=== PATIENT | female | born 1990 | race Caucasian/White ===

== ENCOUNTER 2020-02-03 10:46 | Outpatient (REF) | payer OTHER, SELFPAY | END 2020-02-03 10:47 | disposition home or self-care (01) | LOC: HO.WFDLDS 10:46 | PROVIDERS: PCP Internal Medicine; Visit Provider Internal Medicine | DX: Z20.828 Contact with and (suspected) exposure to other viral communicable diseases (principal) | CPT/HCPCS: U0003 ==

== ENCOUNTER 2024-02-05 11:21 | Outpatient (REF) | payer OTHER, SELFPAY ==
[2024-02-05 14:25] LABS: Influenza A PCR NEGATIVE (Negative); Influenza B PCR NEGATIVE (Negative); Resp Syncy Virus RNA Qual PCR NEGATIVE (Negative); SARS COV2 PCR INHOUSE NEGATIVE (Negative)
== END 2024-02-05 11:22 | disposition home or self-care (01) ==
LOC: HO.LAB 11:21
PROVIDERS: PCP Nurse Practitioner Family; Visit Provider Registered Nurse
DX: J06.9 Acute upper respiratory infection, unspecified (principal)
CPT/HCPCS: 0241U; 87880; 99212

== ENCOUNTER 2024-02-05 11:21 | Outpatient (AMB) | payer OTHER, SELFPAY ==
[2024-02-05 11:22] VITALS: BP 118/70; PULSE 77; TEMP 36.7; O2SAT 98; BMI 26.6
--- NOTE | 2024-02-05 11:22 | AM.OFFWIN_ITS ---
Intake Vital Signs 02/05/24 11:22 Height 5 ft 4 in Weight 155 lb BMI 26.6 BP 118/70 Blood Pressure Location Rt brachial Position Sitting Pulse 77 Pulse Source Pulse Oximeter Temp 98.1 F Temp Source Oral Pulse Oximetry (%) 98 Intake Visit Reasons: EP Sore throat, lymph nodes in neck are painful Intake Note: pt is here for sore throat, lymph nodes in neck swollen causing pain Patient Tobacco Use Status: Never used Tobacco Allergies No Known Allergies Allergy (Verified 02/05/24 11:23) Do you need a note to return to daycare/school/sports/work: No HPI EP Sore throat, lymph nodes in neck are painful HPI Details This note is constructed using voice recognition software. While every effort has been made to ensure accuracy, mold inspector errors may have been included. The patient is a 33 year old female who presents to the clinic today with sore throat, swollen lymph nodes, for the past week. She denies fever, chills, however he is taking Tylenol and Motrin for the pain. She denies body aches, cough, shortness of breath. She does report that she has had a dry tickle. [facility] Surgical History (Updated 03/23/21 @ 09:23 by Renetta Glynn [facility]) No pertinent past surgical history Family History (Updated 03/23/21 @ 09:38 by EMILY Pardo-C) Mother Mental health disorder Father Mental health disorder Hypertension Paternal Grandfather Diabetes mellitus Stomach cancer, Onset Age: 78 Maternal Grandfather Myocardial infarct, Onset Age: 60 Social History Housing: House Patient Tobacco Use Status: Never used Tobacco e-Cigarette/Vaping Use: Never Used Second Hand Smoke Exposure: No service: No Current occupational status: employed Cognitive needs: No Hearing needs: No Vision needs: No Review of Systems Const All systems reviewed & are unremarkable except as noted in HPI and below Physical Exam Vital Signs: Last Vital Signs Temp 98.1 F 02/05/24 11:22 Pulse 77 02/05/24 11:22 BP 118/70 02/05/24 11:22 Pulse Ox 98 02/05/24 11:22 BMI result Body Mass Index 26.6 Const General: cooperative, healthy appearing, comfortable and no acute distress Orientation/consciousness: patient oriented x3 Limitations: no limitations HEENT Head: Yes normal to inspection Ears: hearing grossly normal bilaterally, external ears normal and TM's normal bilaterally General nose exam: Normal external nose present, Normal nares present and No nasal discharge present Face and sinus: Yes normal facial exam and Yes sinuses nontender Mouth: Normal oral and palatal mucosa present and moist mucous membranes Throat: Yes tonsils normal, Yes uvula midline and Yes posterior oropharynx abnormal (Erythema) Eyes General: appearance normal, both eyes and all related structures Neck Other: No nuchal rigidity. FROM. Neck: Yes normal visual inspection and Yes lymphadenopathy (anterior) Resp Effort & Inspection: normal respiratory effort, able to speak in complete sentences, Actively coughing, no respiratory distress, not tachypneic, no tripod positioning and no use of accessory muscles Auscultation: clear to auscultation bilaterally Cardio Jugular venous distension: no JVD Rate: regular rate Rhythm: regular rhythm Heart sounds: S1 normal heart sound present, S2 normal heart sound present, no click, no gallops, no murmurs and no rubs Skin General skin exam: no rashes or lesions noted, elasticity normal and turgor normal Neuro General: patient oriented x3 Extrem General: Yes normal to inspection and Yes no clubbing, cyanosis or edema Results AMB Rapid Strep AMB Rapid Strep Negative Last Edit by Salazar Galloway CMA on 02/05/24 11 :35 Assessment & Plan Assessment & Plan (1) URI (upper respiratory infection): Code(s): J06.9 - Acute upper respiratory infection, unspecified Qualifiers: URI type: unspecified URI Qualified Code(s): J06.9 - Acute upper respiratory infection, unspecified Plan: In office rapid strep negative. Viral swab obtained to rule out Covid, Inf luenza, and RSV based on symptoms. Advised mask wearing while symptomatic and quarantine per current CDC guidelines. Reviewed at home support methods including hydration, humidification, vix vapor rub, sinus rinse, and otc treatment options. Discussed treatment with antiviral therapy for covid with paxlovid and with Tamiflu for influenza, including appropriate use and side effects, and need to start medication within 5 day of symptom onset, preferably within 48 hours of symptom onset. Patient wishes to decline antiviral therapy. Advised follow up with worsening symptoms such as dyspnea at rest, which would require emergent evaluation. Plan See above for full details and plan. Orders: Orders AMB Rapid Strep Screen Today Z13.9 - Encounter for screening, unspecified SARS-CoV2/FLU/RSV Today J06.9 - Acute upper respiratory infection, unspecified Coding Level of Care Code Est Pt Level 3 (69176) Diagnoses Upper respiratory tract infection, unspecified type J06.9 URI type: unspecified URI
== END 2024-02-05 12:04 | disposition home or self-care (01) ==
PROVIDERS: PCP Nurse Practitioner Family; Visit Provider Registered Nurse
DX: Z13.9 Encounter for screening, unspecified (principal); J06.9 Acute upper respiratory infection, unspecified